=== PATIENT | male | born 1975 | race Caucasian/White ===

== ENCOUNTER 2021-10-08 11:47 | Emergency (ER) | payer MEDICARE, SELFPAY ==
--- NOTE | 2021-10-08 12:00 | XRR_ITS ---
PROCEDURE INFORMATION: Exam: XR Right Knee Exam date and time: 10/08/2021 12:24 PM Age: 46 years old Clinical indication: Pain; Right; Patient HX: History--pt states that his RT knee hurts under the knee cap and runs medial to lateral. PT states that it started hurting a week ago. No known injury. No noticable swelling. ; Additional info: Knee pain TECHNIQUE: Imaging protocol: Radiologic exam of the Right knee. Views: 3 views. COMPARISON: No relevant prior studies available. FINDINGS: Bones/joints: Normal. Soft tissues: Normal. XR/XR knee RT 3V* [id number] IMPRESSION: No acute findings.
[2021-10-08 12:09] VITALS: BMI 24.0
[2021-10-08 12:35] VITALS: BP 145/101; PULSE 68; RESP 16; O2SAT 98
--- NOTE | 2021-10-08 12:44 | ED_ITS ---
HPI - Extremity Problem General: Chief complaint: Extremity Injury, Lower Stated complaint: Left knee injury Time Seen by Provider: 10/08/21 12:11 PFSH ED PFSH: Medical History (Updated 08/28/21 @ 15:22 by Jez Sánchez MD) Acute sinusitis Chronic headaches Depression Insomnia, controlled Social History Smoking and tobacco status: current every day smoker cigarettes Packs smoked per day: 1 Alcohol intake: current Alcohol intake frequency: holidays/special occasions only Course Vital Signs: Vital signs: Vital Signs Pulse Rate 68 10/08/21 12:35 Respiratory Rate 16 10/08/21 12:35 Blood Pressure 145/101 10/08/21 12:35 Pulse Oximetry 98 10/08/21 12:35 Discharge Plan Discharge Condition: Stable Prescriptions: No Action amoxicillin-pot clavulanate 875-125 mg tablet 1 tab PO BID 7 Days Qty: 14 0RF amitriptyline 10 mg tablet 10 mg PO .qhs Qty: 30 5RF fluoxetine [Prozac] 20 mg capsule 20 mg PO QAM Qty: 30 2RF Referrals: Jez Sánchez MD [Primary Care Provider] - Coding Level of Care Code ED Power Equipment Technology Instructor for Chg Karuna
--- NOTE | 2021-10-08 12:47 | W.ED.GENADLT ---
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 Patient tells me that he has had medial and lateral knee pain for the last week. Patient denies any fall, pop, injury to the knee or trauma. Patient says that since last week, both sides of the left knee has been increasingly more painful and swollen. Patient denies any acute dislocation of the knee or deformity of the knee. Patient does not have any complaints of the pain or injury elsewhere. Patient states that the areas of pain are worse with overuse throughout the day. Onset:1 week ago Duration:1 week Location:home Severity:mild Associated symptoms: Deny chest pain, dyspnea, nausea, rash, palpitations or vomiting Review of Systems Const: Denies: fever(s) or chills Eyes: Denies: change in vision ENMT: Denies: mouth pain Card: Denies: chest pain or palpitations Resp: Denies: dyspnea or non-productive cough GI: Denies: abdominal pain, nausea, vomiting or diarrhea : Denies: dysuria Musc: Reports: extremity pain (+L knee pain) Skin/Breast: Denies: rash or new lesions Neuro: Denies: weakness in extremities Psych: Reports: other (Normal mood) David/Lymph: Denies: easy bruising PFS ED PFSH: Medical History Acute sinusitis Chronic headaches Depression Insomnia, controlled Social History Smoking and tobacco status: current every day smoker cigarettes Packs smoked per day: 1 Alcohol intake: current Alcohol intake frequency: holidays/special occasions only Physical Exam Const: COMMON NORMALS: alert HENMT: COMMON NORMALS: atraumatic HEAD & SCALP: atraumatic MOUTH: moist mucous membranes not abnormal Eye: COMMON NORMALS: EOMs intact bilaterally and conjunctivae normal CONJUNCTIVA: Yes conjunctivae normal Neck/C-Spine: COMMON NORMALS: full ROM and supple Resp: COMMON NORMALS: normal respiratory effort and clear to auscultation bilaterally AUSCULTATION: clear to auscultation bilaterally Cardio: COMMON NORMALS: regular rate RATE: regular rate GI: COMMON NORMALS: Soft to palpation and non-tender PALPATION: Yes Soft to palpation Extremity: COMMON NORMALS: full ROM NARRATIVE EXTREMITY EXAM: Mild pericapsular tenderness to palpation on the lateral and medial aspect of the left knee, no palpable fluctuance warmth or swelling of the knee Neuro: SENSORIUM/ORIENTATION: Yes alert MOTOR EXAM: No Abnormal motor strength present and Other motor observations present (no focal motor deficits) Psych: COMMON NORMALS: speech normal SPEECH: Yes normal speech MOOD & AFFECT: Yes euthymic mood Course Vital Signs: Vital signs: Vital Signs Pulse Rate 68 10/08/21 12:35 Respiratory Rate 16 10/08/21 12:35 Blood Pressure 145/101 10/08/21 12:35 Pulse Oximetry 98 10/08/21 12:35 MDM - General Adult Medical Decision Making 46-year-old male presenting to the emergency room with complaints of left-sided knee pain on the lateral and medial aspect. Patient does not appear to have any palpable fluctuance. There is no warmth erythema or swelling. No signs of acute injuries. No focal tenderness palpation of the left lower extremity. Neurovascular exam intact in the left lower extremity. X-ray of the knee negative for any acute fractures. I suspect the symptoms today are consistent with bursitis versus ligament/muscle strain. Rx: norflex, tylenol, lidocaine patch, and menthol PRN pain Disposition: Discharge. Patient counseled regarding diagnostic impression, treatment plan. Patient given ED strict return precautions to return for continuation, worsening, or development of new symptoms. Instructed to f/u w/ PCP regarding symptoms today. Patient verbalized understanding. Lab Data Radiology Impressions Knee X-Ray 10/08/21 12:00 IMPRESSION: No acute findings. Imaging Data Other Imaging: Radiologist's impression: [facility] [address] [place] [address] XRay Report Signed Patient: Joseph Rao Unit #: [id number] : [id number] Age/Sex: 46 / M ADM Date: 10/08/21 Loc: ER Room/Bed: Attending Dr: Ordering Provider/Ordering MD: Toribio Bailey MD Date of Service: 10/08/21 Procedure(s): XR knee RT 3V* [id number] Accession Number(s): [id number] Report Number: [id number] PROCEDURE INFORMATION: Exam: XR Right Knee Exam date and time: 10/08/2021 12:24 PM Age: 46 years old Clinical indication: Pain; Right; Patient HX: History--pt states that his RT knee hurts under the knee cap and runs medial to lateral. PT states that it started hurting a week ago. No known injury. No noticable swelling. ; Additional info: Knee pain TECHNIQUE: Imaging protocol: Radiologic exam of the Right knee. Views: 3 views. COMPARISON: No relevant prior studies available. FINDINGS: Bones/joints: Normal. Soft tissues: Normal. XR/XR knee RT 3V* [id number] IMPRESSION: No acute findings. ? Dictated By: Serge Chowdhury Signed By: Serge Chowdhury Signed Date/Time: 10/08/21 1318 DD/ 1224 Discharge Plan Discharge Patient Disposition: Home Clinical Impression: Knee pain Condition: Stable Prescriptions: New lidocaine 5 % adhesive patch,medicated 1 patch topical DAILY PRN (Reason: pain) 30 Days Qty: 30 0RF Rx Instructions: leave on most painful area for up to 12 hrs orphenadrine citrate 100 mg tablet extended release 100 mg PO BID PRN (Reason: pain) 10 Days Qty: 20 0RF Biofreeze (menthol) 5 % gel 1 ea topical BID PRN (Reason: pain) 10 Days Qty: 1 0RF No Action hydrocodone-acetaminophen 5-325 mg tablet 1 tab PO DAILY PRN (Reason: pain) 5 Days Qty: 5 0RF amitriptyline 10 mg tablet 10 mg PO .qhs Qty: 30 5RF fluoxetine [Prozac] 20 mg capsule 20 mg PO QAM Qty: 30 2RF Discharge Orders: Discharge ED (Routine); Ordered 10/08/21 Ordered By: Toribio Bailey Referrals: Jez Sánchez MD [Primary Care Provider] - Discharge Diet: Advance as tolerated Discharge Activity: Increase activity as tolerated Patient Instructions: Knee Pain (ED) Activity Restrictions/Additional Instructions: Our rehabilitation caseworker will have you follow-up with PCP in the next few days to see if you need an MRI. You would be expected to have a phone call with our rehabilitation caseworker who will put you on the schedule. You can expect a call from us in the next 2-3 days. If you don't hear from us, call us back in the emergency room at [phone]. Coding Level of Care Code ED Lag Screwer for Estee Beckman Exam Comprehensive
[2021-10-08] MEDS: acetaminophen 500 mg Tablet PO (13:02)
== END 2021-10-08 13:40 | disposition home or self-care (01) ==
PROVIDERS: Emergency Provider Emergency Medicine; PCP Family Medicine Adult Medicine
DX: M25.562 Pain in left knee (principal); F17.210 Nicotine dependence, cigarettes, uncomplicated
CPT/HCPCS: 73562; 99283

== ENCOUNTER → 2021-10-22 07:34 | Outpatient (BNVA) | payer MEDICARE, SELFPAY | PROVIDERS: PCP Family Medicine Adult Medicine; Referring Provider Family Medicine Adult Medicine; Visit Provider Surgery | DX: K40.91 Unilateral inguinal hernia, without obstruction or gangrene, recurrent (principal) | CPT/HCPCS: 99204 ==

== ENCOUNTER 2021-10-31 11:14 | Day surgery (SDC) | payer MEDICARE, SELFPAY ==
[2021-10-31] VITALS (9 sets, daily range): BP systolic 132–159; BP diastolic 86–108; PULSE 80–109; RESP 18; TEMP 36.3–36.7; O2SAT 92–99
[2021-10-31] MEDS: sodium chloride 0.9% 1,000 ML 30 ML IV (11:44)
--- NOTE | 2021-10-31 12:37 | W.PM.OPSFHP ---
Same Day Surgery H&P Indication for Procedure/HPI DATE OF PROCEDURE: October 31, 2021 CHIEF COMPLAINT/INDICATIONFOR SURGICAL PROCEDURE: hernia repair - right PREOP DIAGNOSIS: inguinal hernia PLANNED PROCEDURE: Operation Date: 10/31/21 13:25 Proposed Procedures p lap poss open right inguinal hernia repair 86800,K40.90(Right) - Roney Merino MD Medications/Allergies* Allergies/Adverse Reactions Allergy/AdvReac Type Severity Reaction Status Date / Time morphine Allergy red Verified 10/31/21 11:25 vain/pop out Current Medications: Generic Name Dose Route Start Last Admin Trade Name Freq PRN Reason Stop Dose Admin Sodium Chloride 1,000 mls @ 30 mls/hr 10/31/21 11:30 10/31/21 11:44 Sodium Chloride 0.9% IV 11/01/21 11:29 30 mls/hr .Q24H LARRY Administration Pertinent History/Comorbid Conditions* Medical History (Updated 10/16/21 @ 00:00 by ) Acute sinusitis Chronic headaches Depression Insomnia, controlled Surgical History (Updated 10/22/21 @ 08:24 by Roney Merino MD) History of esophagogastroduodenoscopy (EGD) 2020 [facility] Hx of colonoscopy 2020 [facility] Status post right inguinal hernia repair Social History Smoking and tobacco status: current every day smoker cigarettes Packs smoked per day: 1 Alcohol intake: current Alcohol intake frequency: holidays/special occasions only Pertinent Exam Findings alert, oriented x 3 and regular rate & rhythm Recommendations Surgery/Procedure today Coding Level of Care Code Acute Toll Service Observer for Roxanng Karuna
[2021-10-31] MEDS: ceFAZolin 2,000 MG in sodium chloride 0.9% (plus) 50 ML 100 MG IV (12:45)
--- NOTE | 2021-10-31 13:09 | ANES.PREANE2 ---
Pre-Anesthetic Assessment Height/Weight: Height 1.8 m Weight 82.1 kg Temp Pulse Resp BP Pulse Ox O2 Del Method 98 F 80 18 145/96 94 10/31/21 11:26 10/31/21 11:26 10/31/21 11:26 10/31/21 11:26 10/31/21 11:26 10/31/21 11:26 Preop Diagnosis: inguinal hernia Operation Date: 10/31/21 13:25 Proposed Procedures p lap poss open right inguinal hernia repair 01564,K40.90(Right) - Roney Merino MD Familial anesthetic complications: none Was Beta Leah taken within 24 hours: N/A Was Clonidine taken within 24 hours: N/A Last intake: Intake Last Liquid Date 10/30/21 Last Liquid Time 23:00 Last Solid Date 10/30/21 Last Solid Time 23:00 Social Tobacco and No alcohol Exam alert, oriented x 3 and regular rate & rhythm Airway Submandibular: within normal limits Cervical ROM: within normal limits Mallampati: Class II Dentition: chipped Pulmonary Chronic Obstructive Pulmonary Disease Neuropsych Depression and Headache Anesthetic Plan ASA status: 2 Anesthesia: General Medications/Allergies Home Medications Medication Instructions Recorded Confirmed Last Taken Type amitriptyline 10 mg tablet 10 mg PO .qhs Chronic headaches 08/28/21 10/31/21 10/30/21 Rx #30 tabs fluoxetine 20 mg capsule (Prozac) 20 mg PO [facility] Mental health #30 caps 08/28/21 10/31/21 10/30/21 Rx hydrocodone 5 mg-acetaminophen 325 1 tab PO Q6H PRN pain #20 tabs 10/31/21 Unknown Rx mg tablet Allergies Allergy/AdvReac Type Severity Reaction Status Date / Time morphine Allergy red Verified 10/31/21 11:25 vain/pop out Current Medications Generic Name Dose Route Start Last Admin Trade Name Freq PRN Reason Stop Dose Admin Sodium Chloride 1,000 mls @ 30 mls/hr 10/31/21 11:30 10/31/21 11:44 Sodium Chloride 0.9% IV 11/01/21 11:29 30 mls/hr .Q24H LARRY Administration PFSH Anesthesia Medical History Acute sinusitis Chronic headaches Depression Insomnia, controlled Surgical History (Updated 10/31/21 @ 12:56 by Roney Merino MD) History of esophagogastroduodenoscopy (EGD) 2020 [facility] Hx of colonoscopy 2020 [facility] Status post right inguinal hernia repair Status post right inguinal hernia repair (10/31/21) recurrent Social History Smoking and tobacco status: current every day smoker cigarettes Packs smoked per day: 1 Alcohol intake: current Alcohol intake frequency: holidays/special occasions only Data Anesthesia Cardiac Studies: No Data to Display
--- NOTE | 2021-10-31 15:21 | PM.OP ---
Operative Report Date of procedure: October 31, 2021 Pre-op diagnosis: Recurrent right inguinal hernia Post-op diagnosis: Recurrent indirect incarcerated right inguinal hernia Procedure done: Laparoscopic converted to open repair of recurrent incarcerated indirect right inguinal hernia with UltraPro mesh and plug Pathology: none sent Surgeon: Roney Merino Anesthesia: General Condition: stable Disposition: PACU Procedure: The patient was taken to the operating room. After IV antibiotic was administered, the abdomen was prepped and draped in a sterile manner. Using a 15 blade, a 1.0 cm transverse incision was made infraumbilically on the () side. Subcutaneous tissue was divided using electrocautery and the anterior rectus sheath divided using an 11 blade. The rectus muscle was retracted laterally and the extraperitoneal space identified. A 11 mm port was placed and 12 mm of pneumoperitoneum was created. A 10 mm 30? scope was introduced and the retrorectus space was opened using the camera up to the pubic symphysis and 5 mm ports were placed in the midline, one 2-fingerbreadths above the pubic symphysis and the other midway between these two ports under direct visualization. Blunt dissection was carried out to open up the tissue in the midline and to the pubic symphysis, which was identified. The dissection was then carried laterally where the iliopubic tract was identified. There was no obvious femoral or direct hernia noted. There was adhesions lateral to the inferior epigastric artery which was gently peeled back until defect was identified around the internal ring. The incarcerated preperitoneal fat was gently peeled away from the cord and reduced from the internal ring. There was oozing as attempt was made to dissect the retrorectus space and dissection was made difficult due to limited visualization as well as adhesions from prior surgery. I therefore chose to abandon the attempt to perform it laparoscopically and chose to convert to open surgery. The ports were removed and the fascia at the umbilical incision was closed using [id number] 0 Vicryl suture, subcutaneous tissues approximated using 3-0 Vicryl suture and skin was closed using running subcuticular 4-0 Monocryl suture and Dermabond. A 5 cm incision was made over the right inguinal canal using 15 blade on the existing scar, the subcutaneous tissue, Korin's fascia divided using electrocautery until the external oblique aponeurosis was identified. Using a 15 blade, a small opening was made in the external oblique aponeurosis along the length of the fibers, this was grasped with hemostats and opened using Metzenbaum scissors medially to the external ring and laterally beyond the internal ring. The contents of inguinal canal were dissected free from the wall and a [place] drain was placed around it. There was no direct hernia noted. The cremasteric muscles were divided until the sac could be dissected free from the spermatic cord and reduced into the preperitoneal space. A small plug was placed in the internal ring and sutured using 2-0 Prolene [id number]-[id number] suture. A Proloop mesh was introduced and using 2-0 Prolene suture the medial edge of the mesh were sutured to the fascia overlying the pubic tubercle, and the suture was run to approximate the inferior edge of the mesh to the shelving edge of inguinal ligament to a point beyond the internal ring. Interrupted 2-0 Prolene suture was used to approximate the superior edge of the mesh to the internal oblique muscles and the 2 limbs of the mesh was sutured lateral to the internal ring and approximated to the internal oblique muscle. The wound was copiously irrigated with saline, good hemostasis noted and the external oblique aponeurosis was closed with running 2-0 Vicryl suture, Korin's fascia approximated using running 3-0 Vicryl suture, and skin was closed using running subcuticular 4-0 Monocryl suture and Dermabond. The patient was extubated and transferred to recovery room in stable condition.
--- NOTE | 2021-10-31 15:24 | ANE.PACU2 ---
Inpatient post-anesthesia follow up: Airway intact: Yes Vital signs: Temperature 97.8 F Pulse Rate 93 Respiratory Rate 18 Blood Pressure 159/86 Pulse Oximetry 93 Oxygen Delivery Me thod Nasal Cannula Oxygen Flow Rate 2 Fraction of Inspir ed Oxygen Hydration adequate: Yes Nausea and vomiting: No Pain level: 3 Mental status: Baseline
[2021-10-31] MEDS: HYDROcodone-acetaminophen 5-325 mg Tablet 1 TAB PO (15:45)
== END 2021-10-31 15:55 | disposition home or self-care (01) ==
PROVIDERS: PCP Family Medicine Adult Medicine; Visit Provider Surgery
PROC: (CPT 49650; principal; 2021-10-31 13:15)
PROC: (CPT 49507; 2021-10-31 13:15)
DX: K40.30 Unilateral inguinal hernia, with obstruction, without gangrene, not specified as recurrent (principal); Z53.31 Laparoscopic surgical procedure converted to open procedure; J44.9 Chronic obstructive pulmonary disease, unspecified; F32.A Depression, unspecified; F17.210 Nicotine dependence, cigarettes, uncomplicated
CPT/HCPCS: 49507; J1100; J1170; J2250; J2405; J2704; J3010; J3490; J7030

== ENCOUNTER → 2021-11-12 10:13 | Outpatient (BNVA) | payer MEDICARE, SELFPAY | PROVIDERS: PCP Family Medicine Adult Medicine; Visit Provider Surgery | DX: Z98.890 Other specified postprocedural states (principal); Z87.19 Personal history of other diseases of the digestive system | CPT/HCPCS: 99024 ==

== ENCOUNTER → 2022-09-04 10:46 | Outpatient (BNVA) | payer MEDICARE, SELFPAY | PROVIDERS: PCP Family Medicine Adult Medicine; Visit Provider Family Medicine Adult Medicine | DX: R55 Syncope and collapse (principal); R68.89 Other general symptoms and signs; F17.200 Nicotine dependence, unspecified, uncomplicated | CPT/HCPCS: 80053; 80061; 84443; 85025 ==

== ENCOUNTER → 2022-11-01 12:14 | Outpatient (BNVA) | payer MEDICARE, SELFPAY | PROVIDERS: PCP Family Medicine Adult Medicine; Visit Provider Nurse Practitioner Family | DX: R30.0 Dysuria (principal) | CPT/HCPCS: 81000 ==

== ENCOUNTER → 2022-11-12 13:47 | Outpatient (BNVA) | payer MEDICARE, SELFPAY | PROVIDERS: PCP Family Medicine Adult Medicine; Visit Provider Surgery | DX: R10.31 Right lower quadrant pain (principal) | CPT/HCPCS: 99213 ==